=== PATIENT | female | born 1980 | race Two or more races ===

== ENCOUNTER → 2025-02-04 | Emergency (ER) | payer OTHER ==
[~2025-02-04] VITALS: Ht 149.9 cm; Wt 88.0 kg
[~2025-02-04] MED LIST: CYCLOBENZAPRINE10 MG PO; KETOROLAC TROMETHAMINE 60 MG VIAL IM ONE
[2025-02-04 11:15] LABS: BASO % 0.5 % (0.1-1.2); EOS # 0.04 (0.04-0.54); EOS % 0.4 % (0.7-7.0); LYMPH # 2.43 (1.18-3.74); LYMPH % 24.8 % (19.3-53.1); MEAN PLATELET VOLUME 9.80 fl (9.4-12.4); MONO # 0.43 (0.24-0.82); MONO % 4.4 % (4.7-12.5); NEUT # 6.80 (1.56-6.13); NEUT % 69.6 % (34.0-71.1); RED CELL DISTRIBUTION WIDTH 12.9 % (11.6-14.4)
[2025-02-04 11:51] LABS: BUN CREA RATIO 14.0 (7.0-25.0); CREATININE SERUM 0.66 mg/dL (0.55-1.02); GFR 96.85; GLUCOSE FASTING 77.0 mg/dL (65-100); OSMOLALITY SERUM 279.0 MOSM/KG (275-295); PHOSPHOKINASE CREATININE 95.0 U/L (26-192)
== END | disposition home or self-care (01) ==
LOC: ER 08:07
PROVIDERS: Emergency Medicine
DX: R07.89 Other chest pain (principal); E66.89 Other obesity not elsewhere classified; M54.12 Radiculopathy, cervical region; M79.18 Myalgia, other site; Z88.8 Allergy status to other drugs, medicaments and biological substances